=== PATIENT | female | born 1945 | race Two or more races ===

== ENCOUNTER 2017-06-04 22:25 | Emergency (ER) | payer MEDICARE ==
[2017-06-04] MEDS ORDERED: NS 0.9% 1000 ML* 1,000 ML IV ONE (22:52)
[2017-06-04 23:14] LABS: Hematocrit 36 % (35-47); Hemoglobin 11.6 g/dl (12.0-16.0); Mean Corpuscular HGB Conc 32 g/dl (31-36); Mean Corpuscular Hemoglobin 26 pg (27-31); Mean Corpuscular Volume 83 fL (80-97); Mean Platelet Volume 8 um3 (7.4-10.4); Red Cell Distribution Width 13 % (10.5-15); White Blood Count 4.6 10^3/ul (3.5-10.8)
[2017-06-04 23:27] LABS: BUN/Creatinine Ratio 11.8 (8-20); C Reactive Protein 8.25 mg/L (< 5.00); EGFR Non-African American 66.1 (>60); Globulin 3.2 g/dL (2-4); Potassium 3.4 mmol/L (3.5-5.0); Total Bilirubin 0.3 mg/dL (0.2-1.0); Total Protein 7.2 g/dL (6.4-8.9)
--- NOTE | 2017-06-04 23:51 | ED ---
Tara Spears Salem, scribed for Bogdan Nieves MD on 06/04/17 at 2306 . Abdominal Pain/Female - HPI Summary HPI Summary: Patient is a 72 y/o F who presents to the ED per EMS from home with abdominal pain since 2099. She denies nausea or fever, but reports diarrhea. Pt reports PMHx of abdominal cancer, but pt speaks minimal Romansh and is unable to expand. - History of Current Complaint Chief Complaint: EDAbdPain Stated Complaint: ABD PAIN Time Seen by Provider: 06/04/17 22:48 Hx Obtained From: Patient, EMS Onset/Duration: Gradual Onset, Lasting Hours, Still Present Timing: Constant Severity Initially: Moderate Severity Currently: Moderate Pain Intensity: 5 Pain Scale Used: 0-10 Numeric Location: Diffuse Radiates: No Aggravating Factor(s): Nothing Alleviating Factor(s): Nothing Associated Signs and Symptoms: Positive: Diarrhea. Negative: Nausea, Vomiting Allergies/Adverse Reactions: Allergies Allergy/AdvReac Type Severity Reaction Status Date / Time No Known Allergies Allergy Verified 02/18/14 14:02 PMH/Surg Hx/FS Hx/Imm Hx Musculoskeletal History: Denies: Hx Osteoporosis Infectious Disease History: No Infectious Disease History: Denies: Traveled Outside the [place] in Last 30 Days - Family History Known Family History: Positive: Unknown - Pt speaks minimal Romansh. - Social History Alcohol Use: None Hx Substance Use: No Substance Use Type: Reports: None Hx Tobacco Use: No Smoking Status (MU): Never Smoked Tobacco Review of Systems Negative: Fever Positive: Abdominal Pain, Diarrhea. Negative: Nausea All Other Systems Reviewed And Are Negative: Yes Physical Exam Triage Information Reviewed: Yes Vital Signs On Initial Exam: Initial Vitals Temp Pulse Resp BP Pulse Ox 98.4 F 80 18 132/80 99 06/04/17 22:34 06/04/17 22:34 06/04/17 22:34 06/04/17 22:34 06/04/17 22:34 Vital Signs Reviewed: Yes Appearance: Positive: No Pain Distress, Thin Skin: Positive: Warm Head/Face: Positive: Normal Head/Face Inspection Eyes: Positive: JACE ENT: Positive: Hearing grossly normal Neck: Positive: Supple Respiratory/Lung Sounds: Positive: Clear to Auscultation, Breath Sounds Present Cardiovascular: Positive: RRR Abdomen Description: Positive: Nontender, No Organomegaly, Soft Bowel Sounds: Positive: Present Musculoskeletal: Positive: Strength/ROM Intact Neurological: Positive: Sensory/Motor Intact - Beti Coma Scale Coma Scale Total: 15 Diagnostics - Vital Signs Vital Signs Temp Pulse Resp BP Pulse Ox 06/04/17 22:34 98.4 F 80 18 132/80 99 - Laboratory Lab Results: Lab Results 06/04/17 06/04/17 06/04/17 Range/Units 23:00 23:00 23:00 WBC 4.6 (3.5-10.8) 10^3/ul RBC 4.40 (4.0-5.4) 10^6/ul Hgb 11.6 L (12.0-16.0) g/dl Hct 36 (35-47) % MCV 83 (80-97) fL MCH 26 L (27-31) pg MCHC 32 (31-36) g/dl RDW 13 (10.5-15) % Plt Count 274 (150-450) 10^3/ul MPV 8 (7.4-10.4) um3 Neut % (Auto) 53.0 (38-83) % Lymph % (Auto) 30.0 (25-47) % Forrest % (Auto) 11.9 H (1-9) % Eos % (Auto) 4.2 (0-6) % Baso % (Auto) 0.9 (0-2) % Absolute Neuts (auto) 2.4 (1.5-7.7) 10^3/ul Absolute Lymphs (auto) 1.4 (1.0-4.8) 10^3/ul Absolute Monos (auto) 0.5 (0-0.8) 10^3/ul Absolute Eos (auto) 0.2 (0-0.6) 10^3/ul Absolute Basos (auto) 0 (0-0.2) 10^3/ul Absolute Nucleated RBC 0.01 10^3/ul Nucleated RBC % 0.1 Sodium 141 (133-145) mmol/L Potassium 3.4 L (3.5-5.0) mmol/L Chloride 109 (101-111) mmol/L Carbon Dioxide 25 (22-32) mmol/L Anion Gap 7 (2-11) mmol/L BUN 10 (6-24) mg/dL Creatinine 0.85 (0.51-0.95) mg/dL Est GFR ( Amer) 85.0 (>60) Est GFR (Non-Af Amer) 66.1 (>60) BUN/Creatinine Ratio 11.8 (8-20) Glucose 107 H (70-100) mg/dL Lactic Acid 0.8 (0.5-2.0) mmol/L Calcium 9.0 (8.6-10.3) mg/dL Magnesium 2.0 (1.9-2.7) mg/dL Total Bilirubin 0.30 (0.2-1.0) mg/dL AST 18 (13-39) U/L ALT 11 (7-52) U/L Alkaline Phosphatase 92 (34-104) U/L C-Reactive Protein 8.25 H (< 5.00) mg/L Total Protein 7.2 (6.4-8.9) g/dL Albumin 4.0 (3.2-5.2) g/dL Globulin 3.2 (2-4) g/dL Albumin/Globulin Ratio 1.3 (1-3) Lipase 32 (11.0-82.0) U/L Result Diagrams: 06/04/17 23:00 06/04/17 23:00 Lab Statement: Any lab studies that have been ordered have been reviewed, and results considered in the medical decision making process. Re-Evaluation - Re-Evaluation First Eval Re-Evaluation Time: 23:52 Comment: Discussed results. Second Eval Re-Evaluation Time: 00:14 Change: Improved Comment: Re-evaluated. Abdominal Pain Fem Course/Dx - Course Course Of Treatment: 72 y/o F presents per EMS from home with abdominal pain since 2099. She denies nausea or fever, but reports diarrhea. She received fluids in ED course. Pt will be discharged. - Diagnoses Provider Diagnoses: Abdominal pain Discharge - Discharge Plan Condition: Stable Disposition: HOME Patient Education Materials: Acute Diarrhea (ED), Acute Nausea and Vomiting (ED ) Print Language: PAKISTANI Referrals: Elza Loyola MD [Primary Care Provider] - Additional Instructions: Please follow up with your primary care provider. The documentation as recorded by the Tara wood Salem accurately reflects the service I personally performed and the decisions made by me, Bogdan Nieves MD.
[2017-06-05 01:25] VITALS: BP 97/48
== END 2017-06-05 00:25 | disposition home or self-care (01) ==
LOC: ED 22:25
DX: R10.9 Unspecified abdominal pain (principal); R19.7 Diarrhea, unspecified
CPT/HCPCS: 36415; 80053; 83605; 83690; 83735; 85025; 86140; 99282

== ENCOUNTER 2017-09-09 20:21 | Emergency (ER) | payer MEDICARE ==
[2017-09-09] MEDS ORDERED: Famotidine IV* 10 MG/ML 2 ML (20 mg) IVPB ONE (21:26)
[2017-09-09] MEDS ORDERED: NS 0.9% 1000 ML* 1,000 ML IV ONE (21:26)
[2017-09-09] MEDS ORDERED: Al Hydrox/Mg Hydrox/Simet LIQ* 30 ML UDC PO ONE (21:26)
[2017-09-09] MEDS ORDERED: Lidocaine 2% VISCOUS* 15 ML UDC PO ONE (21:26)
[2017-09-09 21:46] LABS: Hematocrit 37 % (35-47); Hemoglobin 11.9 g/dl (12.0-16.0); Mean Corpuscular HGB Conc 32 g/dl (31-36); Mean Corpuscular Hemoglobin 26 pg (27-31); Mean Corpuscular Volume 80 fL (80-97); Mean Platelet Volume 8 um3 (7.4-10.4); Red Blood Count 4.64 10^6/ul (4.0-5.4); Red Cell Distribution Width 14 % (10.5-15); White Blood Count 5.9 10^3/ul (3.5-10.8)
[2017-09-09 22:01] LABS: Albumin 4.1 g/dL (3.2-5.2); BUN/Creatinine Ratio 14.3 (8-20); Calcium 9.2 mg/dL (8.6-10.3); EGFR African American 86.2 (>60); Globulin 3.4 g/dL (2-4); Potassium 3.6 mmol/L (3.5-5.0); Total Bilirubin 0.4 mg/dL (0.2-1.0); Total Protein 7.5 g/dL (6.4-8.9)
--- NOTE | 2017-09-09 22:01 | RAD ---
Indication: Rule out free air. Abdominal pain and nausea and vomiting. Single frontal view of the chest performed at 2137 hours was reviewed. Comparison is made with previous exam dated September 27, 2010. No mediastinal shift is noted. Heart is of normal size and configuration. Lung rios appear clear. No free air is identified under the diaphragms. IMPRESSION: NO ACTIVE CARDIOPULMONARY DISEASE IS NOTED.
[2017-09-09 22:58] LABS: Urine Bacteria Absent (Absent); Urine Bilirubin Negative (Negative); Urine Glucose Negative (Negative); Urine Nitrite Negative (Negative)
[2017-09-09] MEDS ORDERED: Iohexol 300* (CONTRAST) 10 ML SDV IV ONE (23:37)
[2017-09-10] MEDS ORDERED: Cephalexin CAP* 500 MG PO ONE (01:51)
--- NOTE | 2017-09-10 02:23 | ED ---
Bonilla Spears Rebecca, scribed for Tha Rodriguez MD on 09/09/17 at 2144 . Abdominal Pain/Female - HPI Summary HPI Summary: Pt is a 72 y/o F BIBA with a PMHx gastric ulcers and a questionable Hx of NM who presents to ED c/o abdominal pain for multiple weeks. Pain is in the upper abdominal region and is currently mild, ranked 3/10. Sx aggravated and alleviated by nothing. Additionally c/o sore throat, mild chest pain and notes an episode of soft stool earlier today. Denies any fever, cough, N/V and hematochezia. Current pain is prior to similar episodes. She is current in NAD. - History of Current Complaint Chief Complaint: EDAbdPain Stated Complaint: GENERAL ILLNESS Hx Obtained From: Patient Onset/Duration: Lasting Weeks - Multiple weeks, Still Present Severity Currently: Mild Pain Intensity: 3 Pain Scale Used: 0-10 Numeric Location: Epigastric Aggravating Factor(s): Nothing Alleviating Factor(s): Nothing Associated Signs and Symptoms: Positive: Chest Pain - mild, Other: - Soft stool. Negative: Nausea, Vomiting Allergies/Adverse Reactions: Allergies Allergy/AdvReac Type Severity Reaction Status Date / Time No Known Allergies Allergy Verified 02/18/14 14:02 PMH/Surg Hx/FS Hx/Imm Hx GI History: Reports: Hx Ulcer Musculoskeletal History: Denies: Hx Osteoporosis Infectious Disease History: No Infectious Disease History: Denies: Traveled Outside the [place] in Last 30 Days - Family History Known Family History: Positive: Unknown - Pt speaks minimal Korean. - Social History Alcohol Use: None Hx Substance Use: No Substance Use Type: Reports: None Hx Tobacco Use: No Smoking Status (MU): Never Smoked Tobacco Review of Systems Negative: Fever Positive: Sore Throat Positive: Chest Pain - mild Negative: Cough Positive: Abdominal Pain, Other - Soft stool; NEGATIVE: Hematochezia. Negative : Vomiting, Diarrhea All Other Systems Reviewed And Are Negative: Yes Physical Exam Triage Information Reviewed: Yes Vital Signs On Initial Exam: Initial Vitals Temp Pulse Resp BP Pulse Ox 99 F 88 18 136/58 97 09/09/17 20:33 09/09/17 20:33 09/09/17 20:33 09/09/17 20:33 09/09/17 20:33 Vital Signs Reviewed: Yes Appearance: Positive: Well-Appearing, No Pain Distress Skin: Positive: Warm, Skin Color Reflects Adequate Perfusion Head/Face: Positive: Normal Head/Face Inspection Eyes: Positive: Normal ENT: Positive: Normal ENT inspection Neck: Positive: Supple Respiratory/Lung Sounds: Positive: Clear to Auscultation, Breath Sounds Present Cardiovascular: Positive: Normal, RRR, Pulses are Symmetrical in both Upper and Lower Extremities Abdomen Description: Positive: Other: - Minimal tenderness without rebound or guarding in the epigastrum. Negative: CVA Tenderness (R), CVA Tenderness (L), Guarding Bowel Sounds: Positive: Present Musculoskeletal: Positive: Normal, Strength/ROM Intact, Other - Moves all 4 extremities spontaneosuly; Negative calf tenderness and erythema. Negative: Edema Left, Edema Right Neurological: Positive: Normal, Sensory/Motor Intact, Alert, Oriented to Person Place, Time Psychiatric: Positive: Normal - Pleasant Diagnostics - Vital Signs Vital Signs Temp Pulse Resp BP Pulse Ox 09/09/17 20:33 99 F 88 18 136/58 97 - Laboratory Lab Results: Lab Results 09/09/17 09/09/17 09/09/17 Range/Units 21:36 21:36 21:36 WBC 5.9 (3.5-10.8) 10^3/ul RBC 4.64 (4.0-5.4) 10^6/ul Hgb 11.9 L (12.0-16.0) g/dl Hct 37 (35-47) % MCV 80 (80-97) fL MCH 26 L (27-31) pg MCHC 32 (31-36) g/dl RDW 14 (10.5-15) % Plt Count 304 (150-450) 10^3/ul MPV 8 (7.4-10.4) um3 Neut % (Auto) 64.6 (38-83) % Lymph % (Auto) 23.7 L (25-47) % Garrard % (Auto) 10.5 H (1-9) % Eos % (Auto) 0.4 (0-6) % Baso % (Auto) 0.8 (0-2) % Absolute Neuts (auto) 3.8 (1.5-7.7) 10^3/ul Absolute Lymphs (auto) 1.4 (1.0-4.8) 10^3/ul Absolute Monos (auto) 0.6 (0-0.8) 10^3/ul Absolute Eos (auto) 0 (0-0.6) 10^3/ul Absolute Basos (auto) 0 (0-0.2) 10^3/ul Absolute Nucleated RBC 0.01 10^3/ul Nucleated RBC % 0.1 INR (Anticoag Therapy) 1.03 (0.89-1.11) Sodium 139 (133-145) mmol/L Potassium 3.6 (3.5-5.0) mmol/L Chloride 105 (101-111) mmol/L Carbon Dioxide 26 (22-32) mmol/L Anion Gap 8 (2-11) mmol/L BUN 12 (6-24) mg/dL Creatinine 0.84 (0.51-0.95) mg/dL Est GFR ( Amer) 86.2 (>60) Est GFR (Non-Af Amer) 67.0 (>60) BUN/Creatinine Ratio 14.3 (8-20) Glucose 98 (70-100) mg/dL Calcium 9.2 (8.6-10.3) mg/dL Magnesium 2.0 (1.9-2.7) mg/dL Total Bilirubin 0.40 (0.2-1.0) mg/dL AST 21 (13-39) U/L ALT 10 (7-52) U/L Alkaline Phosphatase 97 (34-104) U/L Troponin I 0.00 (<0.04) ng/mL Total Protein 7.5 (6.4-8.9) g/dL Albumin 4.1 (3.2-5.2) g/dL Globulin 3.4 (2-4) g/dL Albumin/Globulin Ratio 1.2 (1-3) Amylase 38 (29-103) U/L Lipase 28 (11.0-82.0) U/L Urine Color Urine Appearance Urine pH (5-9) Ur Specific [place] (1.010-1.030) Urine Protein (Negative) Urine Ketones (Negative) Urine Blood (Negative) Urine Nitrate (Negative) Urine Bilirubin (Negative) Urine Urobilinogen (Negative) Ur Leukocyte Esterase (Negative) Urine WBC (Auto) (Absent) Urine RBC (Auto) (Absent) Ur Squamous Epith Cells (Absent) Urine Bacteria (Absent) Urine Glucose (Negative) 09/09/17 Range/Units 22:45 WBC (3.5-10.8) 10^3/ul RBC (4.0-5.4) 10^6/ul Hgb (12.0-16.0) g/dl Hct (35-47) % MCV (80-97) fL MCH (27-31) pg MCHC (31-36) g/dl RDW (10.5-15) % Plt Count (150-450) 10^3/ul MPV (7.4-10.4) um3 Neut % (Auto) (38-83) % Lymph % (Auto) (25-47) % Garrard % (Auto) (1-9) % Eos % (Auto) (0-6) % Baso % (Auto) (0-2) % Absolute Neuts (auto) (1.5-7.7) 10^3/ul Absolute Lymphs (auto) (1.0-4.8) 10^3/ul Absolute Monos (auto) (0-0.8) 10^3/ul Absolute Eos (auto) (0-0.6) 10^3/ul Absolute Basos (auto) (0-0.2) 10^3/ul Absolute Nucleated RBC 10^3/ul Nucleated RBC % INR (Anticoag Therapy) (0.89-1.11) Sodium (133-145) mmol/L Potassium (3.5-5.0) mmol/L Chloride (101-111) mmol/L Carbon Dioxide (22-32) mmol/L Anion Gap (2-11) mmol/L BUN (6-24) mg/dL Creatinine (0.51-0.95) mg/dL Est GFR ( Amer) (>60) Est GFR (Non-Af Amer) (>60) BUN/Creatinine Ratio (8-20) Glucose (70-100) mg/dL Calcium (8.6-10.3) mg/dL Magnesium (1.9-2.7) mg/dL Total Bilirubin (0.2-1.0) mg/dL AST (13-39) U/L ALT (7-52) U/L Alkaline Phosphatase (34-104) U/L Troponin I (<0.04) ng/mL Total Protein (6.4-8.9) g/dL Albumin (3.2-5.2) g/dL Globulin (2-4) g/dL Albumin/Globulin Ratio (1-3) Amylase (29-103) U/L Lipase (11.0-82.0) U/L Urine Color Yellow Urine Appearance Cloudy Urine pH 6.0 (5-9) Ur Specific [place] 1.018 (1.010-1.030) Urine Protein Negative (Negative) Urine Ketones Trace H (Negative) Urine Blood 1+ H (Negative) Urine Nitrate Negative (Negative) Urine Bilirubin Negative (Negative) Urine Urobilinogen Negative (Negative) Ur Leukocyte Esterase 2+ H (Negative) Urine WBC (Auto) 1+(6-10/hpf) H (Absent) Urine RBC (Auto) 3+(>10/hpf) H (Absent) Ur Squamous Epith Cells Present H (Absent) Urine Bacteria Absent (Absent) Urine Glucose Negative (Negative) Result Diagrams: 09/09/17 21:36 09/09/17 21:36 Lab Statement: Any lab studies that have been ordered have been reviewed, and results considered in the medical decision making process. - Radiology CXR Xray Interpretation: No Acute Changes - NO ACTIVE CARDIOPULMONARY DISEASE IS NOTED. ED physician reviewed radiology report and agrees. 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 No other localizing findings for acute pathology. ED physician reviewed this radiology report and agrees. CT Interpretation Completed By: Radiologist Re-Evaluation - Re-Evaluation First Eval Re-Evaluation Time: 00:45 Comment: Pt is doing well. Answered any questions the pt had. Abdominal Pain Fem Course/Dx - Course Course Of Treatment: pt feels better after tx here in ed, instructed to fu at clinic with Dr. Walker who I spoke with on the phone today, for scheduled resection of appendiceal mucocele. Pt and family agree and understand discharge instructions. - Diagnoses Provider Diagnoses: Appendicular mucocele, UTI (urinary tract infection) - Provider Notifications Discussed Care Of Patient With: Bogdan Walker Time Discussed With Above Provider: 01:30 Instructed by Provider To: Other - fu as outpatient Discharge - Discharge Plan Condition: Improved Disposition: HOME Prescriptions: Cephalexin CAP* [Keflex CAP*] 500 mg PO BID #10 cap Patient Education Materials: Acute Abdominal Pain (ED) Print Language: J[place]ICAN Referrals: Elza Loyola MD [Primary Care Provider] - Bogdan Walker MD [Medical Doctor] - Additional Instructions: POR FAVOR VALERIE MARKEL SUN CON EL DR. WALKER PRIMERA COSA POR LA MAANA POR FAVOR REGRESE A LA KEARA DE EMERGENCIAS SI USTED TIENE ALGUNA SENSACIN O S NTOMAS RELATIVOS The documentation as recorded by the Bonilla wood Rebecca accurately reflects the service I personally performed and the decisions made by me, Tha Rodriguez MD.
[2017-09-10 02:38] VITALS: BP 117/81
--- NOTE | 2017-09-10 08:09 | RAD ---
INDICATION: Abdominal pain. History of gastric carcinoma. Evaluate for aneurysm. Diarrhea. COMPARISON: CT June 26, 2006 TECHNIQUE: Axial source images were obtained from the hemidiaphragms to the symphysis pubis following administration of oral and intravenous contrast. 60 mL Omnipaque 300 was utilized. Coronal and sagittal reconstructed images were acquired. Lung bases: The lung bases are clear. Liver: The liver is normal in size. There are no new masses. There is a subcentimeter right hepatic hypodensity which is likely a incidental cyst or hemangioma There is no ductal dilatation. Gallbladder: There are no calcified gallstones. There is no evidence of wall thickening or pericholecystic fluid. Spleen: The spleen is normal in size. There are no masses. Pancreas: There is no focal pancreatic mass or ductal dilatation. Adrenal glands: There is no evidence of adrenal mass. Kidneys: The kidneys are normal in size and position. There are prompt nephrograms and there is prompt excretion bilaterally. There are no renal parenchymal masses. There is no evidence of nephrolithiasis. Adenopathy: There is no evidence of adenopathy by size criteria. Fluid collections: There are no free or localized fluid collections. Vessels:There are no significant atherosclerotic changes involving the aorta. There is no focal aneurysm. The iliac vessels are normal in caliber. The IVC appears normal. GI tract: There are no acute CT bowel findings. There is no obstruction. The stomach and small bowel appear normal. The ileocecal valve is normal. The appendix is fluid-filled and dilated measuring 2.7 cm in transverse dimension. There is no abnormal enhancement. There is no periappendiceal inflammatory change. The cecum, ascending colon, transverse colon, and descending colon are normal. There are moderate diverticula of the sigmoid colon. There is no obstruction. Pelvic organs: Hysterectomy. No adnexal mass. Bladder: There are no bladder masses. Abdominal and pelvic soft tissues: There is a small fat-containing periumbilical hernia.. Osseous structures: There are no acute osseous findings. Other: None IMPRESSION: 1. NO EVIDENCE OF ABDOMINAL AORTIC ANEURYSM. 2. DILATED FLUID-FILLED APPENDIX WITHOUT ADJACENT INFLAMMATORY CHANGE. CONSIDER MUCOCELE/BENIGN OR MALIGNANT APPENDICEAL NEOPLASM. 3. NO CT FINDINGS TO ACCOUNT FOR ACUTE SYMPTOMATOLOGY. SUGGEST SURGICAL REFERRAL INDICATED.
== END 2017-09-10 02:38 | disposition home or self-care (01) ==
LOC: ED 20:21
DX: K38.8 Other specified diseases of appendix (principal); N39.0 Urinary tract infection, site not specified; R07.9 Chest pain, unspecified; R10.9 Unspecified abdominal pain; J02.9 Acute pharyngitis, unspecified
CPT/HCPCS: 36415; 71010; 74177; 80053; 81003; 81015; 82150; 83690; 83735; 84484; 85025; 85610; 87086; 96365; 99283; A9270-GY; Q9967

== ENCOUNTER 2017-11-30 17:42 | Emergency (ER) | payer MEDICARE ==
[2017-11-30] MEDS ORDERED: Pantoprazole IV* 40 MG IV ONE (18:19)
[2017-11-30 18:49] LABS: ABS Basophils 0 10^3/ul (0-0.2); ABS Eosinophils 0 10^3/ul (0-0.6); ABS Lymphocytes 1.2 10^3/ul (1.0-4.8); ABS Monocytes 0.6 10^3/ul (0-0.8); ABS Neutrophils 4.2 10^3/ul (1.5-7.7); ABS Nucleated RBC 0 10^3/ul; Eosinophil % 0.5 % (0-6); Hematocrit 38 % (35-47); Hemoglobin 12.2 g/dl (12.0-16.0); Lymphocyte % 19.4 % (25-47); Mean Corpuscular HGB Conc 32 g/dl (31-36); Mean Corpuscular Hemoglobin 26 pg (27-31); Mean Corpuscular Volume 79 fL (80-97); Mean Platelet Volume 8 um3 (7.4-10.4); Nucleated Red Blood Cells % 0.1; Platelet Count 336 10^3/ul (150-450); Red Blood Count 4.77 10^6/ul (4.0-5.4); Red Cell Distribution Width 13 % (10.5-15); White Blood Count 6.1 10^3/ul (3.5-10.8)
[2017-11-30 18:59] LABS: Urine Appearance Clear; Urine Blood 2+ (Negative); Urine Color Yellow; Urine Ketones Negative (Negative); Urine Protein Negative (Negative); Urine Urobilinogen Negative (Negative)
[2017-11-30 19:06] LABS: EGFR Non-African American 71.9 (>60)
[2017-11-30] MEDS ORDERED: Iohexol 300* (CONTRAST) 10 ML SDV IV ONE (21:34)
--- NOTE | 2017-11-30 22:14 | ED ---
Gisela Spears Julia, scribed for Gage Caruso MD on 11/30/17 at 1951 . 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 Patient reports left chest pain, bloody stool and urine, fever , diarrhea, weakness, and eye pain.The patient rates the pain 8/10 in severity - History of Current Complaint Chief Complaint: EDAbdPain Stated Complaint: ABD PAIN Time Seen by Provider: 11/30/17 18:00 Hx Obtained From: Patient, Family/Magento Developer Onset/Duration: Lasting Hours Timing: Intermittent Episode Lasting Pain Intensity: 8 Pain Scale Used: 0-10 Numeric Associated Signs and Symptoms: Positive: Other: Allergies/Adverse Reactions: Allergies Allergy/AdvReac Type Severity Reaction Status Date / Time No Known Allergies Allergy Verified 02/18/14 14:02 PMH/Surg Hx/FS Hx/Imm Hx Endocrine/Hematology History: Denies: Hx Diabetes Cardiovascular History: Denies: Hx Hypertension GI History: Reports: Hx Ulcer History: Denies: Hx Renal Disease Musculoskeletal History: Denies: Hx Osteoporosis - Cancer History Cancer Type, 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 - Surgical History Surgery Procedure, Year, and Place: STOMACH TO REMOVE CA (?) PER PT, DONE IN [place] Infectious Disease History: No Infectious Disease History: Denies: Traveled Outside the US in Last 30 Days - Family History Known Family History: Positive: Unknown - Pt speaks minimal Telugu. - Social History Alcohol Use: None Hx Substance Use: No Substance Use Type: Reports: None Hx Tobacco Use: No Smoking Status (MU): Never Smoked Tobacco Review of Systems Positive: Fever, Other - weakness Eyes: Other - pain Positive: Chest Pain Positive: Abdominal Pain, Diarrhea, Other - bloody stool Positive: hematuria All Other Systems Reviewed And Are Negative: Yes Physical Exam - Summary Physical Exam Summary: Appearance: The patient is well-nourished in no acute distress and in no acute pain. Skin: The skin is warm and dry and skin color reflects adequate perfusion. HEENT: The head is normocephalic and atraumatic. The pupils are equal and reactive. The conjunctivae are clear and without drainage. Nares are patent and without drainage. Mouth reveals moist mucous membranes and the throat is without erythema and exudate. The external ears are intact. The ear canals are patent and without drainage. The tympanic membranes are intact. Neck: the neck is supple with full range of motion and non-tender. There are no carotid bruits. There is no neck vein distension. Respiratory: Chest is non-tender. Lungs are clear to auscultation and breath sounds are symmetrical and equal. Cardiovascular: Heart is regular rate and rhythm. There is no murmur or rub auscultated. There is no peripheral edema and pulses are symmetrical and equal. Abdomen: The abdomen is soft with diffuse abdominal tenderness. There are normal bowel sounds heard in all four quadrants and there is no organomegaly palpated. Musculoskeletal: There is no back tenderness noted. Extremities are non-tender with full range of motion. There is good capillary refill. There is no peripheral edema or calf tenderness elicited. Neurological: Patient is alert and oriented to person, place and time. The patient has symmetrical motor strength in all four extremities. Cranial nerves are grossly intact. Deep tendon reflexes are symmetrical and equal in all four extremities. Psychiatric: The patient has an appropriate affect and does not exhibit any anxiety or depression. Triage Information Reviewed: Yes Vital Signs On Initial Exam: Initial Vitals BP 121/59 11/30/17 17:58 Vital Signs Reviewed: Yes - [place] Coma Scale Coma Scale Total: 15 Diagnostics - Vital Signs Vital Signs Temp Pulse Resp BP Pulse Ox 11/30/17 19:00 76 18 99 11/30/17 18:00 97.7 F 84 20 121/59 100 11/30/17 17:59 85 17 100 11/30/17 17:58 121/59 - Laboratory Lab Results: Lab Results 11/30/17 11/30/17 11/30/17 Range/Units 18:35 18:35 18:35 WBC 6.1 (3.5-10.8) 10^3/ul RBC 4.77 (4.0-5.4) 10^6/ul Hgb 12.2 (12.0-16.0) g/dl Hct 38 (35-47) % MCV 79 L (80-97) fL MCH 26 L (27-31) pg MCHC 32 (31-36) g/dl RDW 13 (10.5-15) % Plt Count 336 (150-450) 10^3/ul MPV 8 (7.4-10.4) um3 Neut % (Auto) 69.7 (38-83) % Lymph % (Auto) 19.4 L (25-47) % [place] % (Auto) 9.9 H (1-9) % Eos % (Auto) 0.5 (0-6) % Baso % (Auto) 0.5 (0-2) % Absolute Neuts (auto) 4.2 (1.5-7.7) 10^3/ul Absolute Lymphs (auto) 1.2 (1.0-4.8) 10^3/ul Absolute Monos (auto) 0.6 (0-0.8) 10^3/ul Absolute Eos (auto) 0 (0-0.6) 10^3/ul Absolute Basos (auto) 0 (0-0.2) 10^3/ul Absolute Nucleated RBC 0 10^3/ul Nucleated RBC % 0.1 Sodium 137 (133-145) mmol/L Potassium 3.5 (3.5-5.0) mmol/L Chloride 103 (101-111) mmol/L Carbon Dioxide 29 (22-32) mmol/L Anion Gap 5 (2-11) mmol/L BUN 12 (6-24) mg/dL Creatinine 0.79 (0.51-0.95) mg/dL Est GFR ( Amer) 92.5 (>60) Est GFR (Non-Af Amer) 71.9 (>60) BUN/Creatinine Ratio 15.2 (8-20) Glucose 103 H (70-100) mg/dL Lactic Acid 0.9 (0.5-2.0) mmol/L Calcium 9.2 (8.6-10.3) mg/dL Total Bilirubin 0.40 (0.2-1.0) mg/dL AST 18 (13-39) U/L ALT 9 (7-52) U/L Alkaline Phosphatase 103 (34-104) U/L C-Reactive Protein 8.53 H (< 5.00) mg/L Total Protein 7.5 (6.4-8.9) g/dL Albumin 4.1 (3.2-5.2) g/dL Globulin 3.4 (2-4) g/dL Albumin/Globulin Ratio 1.2 (1-3) Lipase 31 (11.0-82.0) U/L Urine Color Urine Appearance Urine pH (5-9) Ur Specific [place] (1.010-1.030) Urine Protein (Negative) Urine Ketones (Negative) Urine Blood (Negative) Urine Nitrate (Negative) Urine Bilirubin (Negative) Urine Urobilinogen (Negative) Ur Leukocyte Esterase (Negative) Urine WBC (Auto) (Absent) Urine RBC (Auto) (Absent) Ur Squamous Epith Cells (Absent) Urine Bacteria (Absent) Urine Glucose (Negative) 11/30/17 Range/Units 18:35 WBC (3.5-10.8) 10^3/ul RBC (4.0-5.4) 10^6/ul Hgb (12.0-16.0) g/dl Hct (35-47) % MCV (80-97) fL MCH (27-31) pg MCHC (31-36) g/dl RDW (10.5-15) % Plt Count (150-450) 10^3/ul MPV (7.4-10.4) um3 Neut % (Auto) (38-83) % Lymph % (Auto) (25-47) % [place] % (Auto) (1-9) % Eos % (Auto) (0-6) % Baso % (Auto) (0-2) % Absolute Neuts (auto) (1.5-7.7) 10^3/ul Absolute Lymphs (auto) (1.0-4.8) 10^3/ul Absolute Monos (auto) (0-0.8) 10^3/ul Absolute Eos (auto) (0-0.6) 10^3/ul Absolute Basos (auto) (0-0.2) 10^3/ul Absolute Nucleated RBC 10^3/ul Nucleated RBC % Sodium (133-145) mmol/L Potassium (3.5-5.0) mmol/L Chloride (101-111) mmol/L Carbon Dioxide (22-32) mmol/L Anion Gap (2-11) mmol/L BUN (6-24) mg/dL Creatinine (0.51-0.95) mg/dL Est GFR ( Amer) (>60) Est GFR (Non-Af Amer) (>60) BUN/Creatinine Ratio (8-20) Glucose (70-100) mg/dL Lactic Acid (0.5-2.0) mmol/L Calcium (8.6-10.3) mg/dL Total Bilirubin (0.2-1.0) mg/dL AST (13-39) U/L ALT (7-52) U/L Alkaline Phosphatase (34-104) U/L C-Reactive Protein (< 5.00) mg/L Total Protein (6.4-8.9) g/dL Albumin (3.2-5.2) g/dL Globulin (2-4) g/dL Albumin/Globulin Ratio (1-3) Lipase (11.0-82.0) U/L Urine Color Yellow Urine Appearance Clear Urine pH 6.0 (5-9) Ur Specific [place] 1.010 (1.010-1.030) Urine Protein Negative (Negative) Urine Ketones Negative (Negative) Urine Blood 2+ H (Negative) Urine Nitrate Negative (Negative) Urine Bilirubin Negative (Negative) Urine Urobilinogen Negative (Negative) Ur Leukocyte Esterase Negative (Negative) Urine WBC (Auto) Absent (Absent) Urine RBC (Auto) Trace(0-2/hpf) (Absent) Ur Squamous Epith Cells Present H (Absent) Urine Bacteria Absent (Absent) Urine Glucose Negative (Negative) Result Diagrams: 11/30/17 18:35 11/30/17 18:35 Lab Statement: Any lab studies that have been ordered have been reviewed, and results considered in the medical decision making process. - EKG 18:02 Cardiac Rate: NL EKG Rhythm: Sinus Rhythm - at 77 BPM Abdominal Pain Fem Course/Dx - Diagnoses Provider Diagnoses: Abdominal pain Discharge - Discharge Plan Disposition: OTHER Referrals: Elza Loyola MD [Primary Care Provider] - The documentation as recorded by the Gisela wood Julia accurately reflects the service I personally performed and the decisions made by , Gage Caruso MD.
[2017-12-01 01:20] VITALS: BP 134/93
--- NOTE | 2017-12-01 03:50 | ED ---
Federico Spears Abhishek, scribed for Gerson Morel MD on 12/01/17 at 0034 . Progress - Progress Note Progress Note: The pt was signed out by Dr. Caruso, pending disposition and awaiting CT A/P. - Results/Orders Results/Orders: CT A/P reveals there is no bowel obstruction, free air, or free fluid. Mild sigmoid diverticulosis. No diverticulitis or colitis. the dilated appendix seen on September 10 is again noted and unchanged. As noted previously, this could represent a mucocele, in which case the appendiceal neoplasm should be considered. Normal kidneys urinary tract and urinary bladder. Normal liver except for small right lobe cyst. Normal spleen. ED Physician has reviewed this radiology report and agrees. Course/Dx - Course Course Of Treatment: DISCUSSED RESULTS WITH PATIENT AND HER DAUGHTER. PATIENT NOW PAIN FREE IN THE ED. F/U PMD; RETURN IF WORSE. - Diagnoses Provider Diagnoses: Abdominal pain The documentation as recorded by the Federico wood Abhishek accurately reflects the service I personally performed and the decisions made by , Gerson Morel MD.
--- NOTE | 2017-12-01 08:06 | RAD ---
CLINICAL HISTORY: Diffuse abdominal pain. The patient reports stomach surgery to "remove cancer" in [place]. COMPARISON: Most recent comparison CT examination is dated September 10, 2017 TECHNIQUE: Contrast enhanced CT examination of the abdomen and pelvis from the lung bases through the initial tuberosities. The patient received 64 mL Omnipaque 300 intravenously prior to imaging.The patient received oral contrast as well prior to imaging. FINDINGS: VISUALIZED LUNG BASES: The visualized lung bases are grossly clear. There is no pleural effusion. ABDOMEN AND PELVIS: The right lobe of the liver there is a 6 mm hypoattenuating focus unchanged in the prior CT examination. The spleen, pancreas and adrenal glands are grossly normal in appearance. The gallbladder is normal. The kidneys are normal in appearance without focal mass, calcification or signs of hydronephrosis. The oral contrast has progressed as far as the transverse colon. The small and large bowel are not distended. Similar to the prior CT examination the appendix is enlarged measuring 2.8 x 2.8 cm in the axial plane (image 49) and 6.4 cm in the cephalocaudal projection (image 48 on the coronal images). There is low-density material filling the appendix. More distally there are diverticula at the rectosigmoid colon but there is no focal inflammatory change consistent with diverticulitis. There is no gross retroperitoneal or mesenteric lymphadenopathy. The uterus appears to be surgically absent. The abdominal aorta and iliac arteries are normal in course and diameter. Degenerative changes include multilevel loss of intervertebral disc height involving the lower thoracic and lumbar spine and multilevel vacuum disc phenomenon. At the L1 vertebral body (sagittal image 59 and axial image 23) there is a subcentimeter focal hypoattenuating lucency in the right vertebral body. This is unchanged from the most recent September 10, 2017 CT examination and appears to likely been present on the June 26, 2006 CT examination as well. IMPRESSION: 1. Grossly dilated appendix with low attenuating material filling the lumen consistent with either a mucocele or potentially an appendiceal neoplasm. 2. Diverticulosis without acute inflammatory change. 3. Additional chronic and degenerative changes described in the body of the report.
== END 2017-12-01 01:23 | disposition home or self-care (01) ==
LOC: ED 17:42
DX: R10.9 Unspecified abdominal pain (principal)
CPT/HCPCS: 36415; 74177; 80053; 81003; 81015; 83605; 83690; 85025; 86140; 93005; 96374; 99283; Q9967

== ENCOUNTER 2018-01-14 21:58 | Emergency (ER) | payer MEDICARE ==
[2018-01-14] MEDS ORDERED: Sucralfate TAB* 1 GM PO ONE (22:18)
[2018-01-14] MEDS ORDERED: Al Hydrox/Mg Hydrox/Simet LIQ* 30 ML UDC PO ONE (22:18)
[2018-01-14] MEDS ORDERED: Pantoprazole TAB (NF) 40 MG TAB PO ONE (22:18)
[2018-01-14] MEDS ORDERED: Famotidine TAB* 20 MG PO ONE (22:18)
[2018-01-14] MEDS ORDERED: Omeprazole CAP* 20 MG PO ONE (23:00)
[2018-01-15 00:05] VITALS: BP 109/53
--- NOTE | 2018-01-15 04:06 | ED ---
Tuan Spears Jennifer, scribed for Leo Hines MD on 01/14/18 at 2218 . Abdominal Pain/Female - HPI Summary HPI Summary: The patient is a 72 year old female who presents with an ulcer on her stomach since last week. She reports that when it rubs, it makes her vomit blood. She denies black or bloody stool. She has not had treatment for it in a long time. She denies taking any medication at this time. The patient additionally complains of chest pain, and diarrhea and fever for three days. LEVEL 5 CAVEAT: HPI limited due to patients limited Colombian. The patient only speaks Lithuanian. - History of Current Complaint Stated Complaint: GENERAL ILLNESS Time Seen by Provider: 01/14/18 22:06 Hx Obtained From: Crusher Machine Operator - Nurse Onset/Duration: Lasting Weeks - one week, Still Present Timing: Constant Severity Initially: Mild Severity Currently: Mild Radiates: No Aggravating Factor(s): Nothing Alleviating Factor(s): Nothing Associated Signs and Symptoms: Positive: Other: - Ulcer on stomach, hematemesis. NEGATIVE: black or blood stool. 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 - Surgical History Surgery Procedure, Year, and Place: STOMACH TO REMOVE CA (?) PER PT, DONE IN [place] - Family History Known Family History: Positive: Unknown - Pt speaks minimal Colombian. - Social History Alcohol Use: None Hx Substance Use: No Substance Use Type: Reports: None Hx Tobacco Use: No Smoking Status (MU): Never Smoked Tobacco Review of Systems Positive: Fever Positive: Chest Pain Positive: Diarrhea, Other - Hematemesis, Ulcer on stomach All Other Systems Reviewed And Are Negative: Yes - Comments Additional Review of Systems Comments: LEVEL 5 CAVEAT: ROS limited due to patients limited Colombian. The patient only speaks Lithuanian. Physical Exam - Summary Physical Exam Summary: Appearance: Well appearing, no pain distress Skin: warm, dry, reflects adequate perfusion Head/face: normal Eyes: Cloudiness in eyes, EOMI, JACE ENT: normal Neck: supple, non-tender Respiratory: CTA, breath sounds present Cardiovascular: RRR, pulses symmetrical Abdomen: non-tender, soft Bowel: present Musculoskeletal: normal, strength/ROM intact Neuro: normal, sensory motor intact, A&Ox3 Triage Information Reviewed: Yes Vital Signs On Initial Exam: Initial Vitals Temp Pulse Resp BP Pulse Ox 37.4 C 82 15 115/51 97 01/14/18 22:30 01/14/18 22:30 01/14/18 22:30 01/14/18 22:30 01/14/18 22:30 Vital Signs Reviewed: Yes Diagnostics - Vital Signs Vital Signs Temp Pulse Resp BP Pulse Ox 01/15/18 00:03 36.6 C 80 16 109/53 98 01/14/18 22:30 37.4 C 82 15 115/51 97 - Laboratory Lab Statement: Any lab studies that have been ordered have been reviewed, and results considered in the medical decision making process. - EKG 22:17 Cardiac Rate: NL EKG Rhythm: Sinus Rhythm - [address] Segment: Normal EKG Interpretation: Normal axis intervals Abdominal Pain Fem Course/Dx - Course Course Of Treatment: Lithuanian speaking, hx obtained thru translator and interpreter. PUD threw up blood a week ago. None now. No melena. Hx of same intermittently. Will need re-scope. GI meds given with relief. EKG neg. F/U GI, PMD. Rx for GI meds. - Diagnoses Provider Diagnoses: Peptic ulcer disease Discharge - Discharge Plan Condition: Good Disposition: HOME Prescriptions: Famotidine TAB* [Pepcid 20 MG TAB*] 20 mg PO BID #10 tab Pantoprazole TAB (NF) [Protonix TAB (NF)] 40 mg PO DAILY #30 tab Sucralfate TAB* [Carafate*] 1 gm PO ACHS #60 tab Patient Education Materials: Peptic Ulcer (ED) Print Language: SCOTTISH Referrals: Elza Loyola MD [Primary Care Provider] - Additional Instructions: Llama al Dr. Loyola por la maana para nigel gloria. Evite el alcohol, aspirina / ibuprofeno, comidas picantes. Regrese con heces oscuras, dolor incontrolable, v mitos de susie, empeorar u otras preocupaciones. The documentation as recorded by the Tuan wood Jennifer accurately reflects the service I personally performed and the decisions made by , Leo Hines MD.
== END 2018-01-15 00:05 | disposition home or self-care (01) ==
LOC: ED 21:58
DX: K27.4 Chronic or unspecified peptic ulcer, site unspecified, with hemorrhage (principal); R50.9 Fever, unspecified; R07.9 Chest pain, unspecified; R19.7 Diarrhea, unspecified
CPT/HCPCS: 93005; 99283; A9270-GY

== ENCOUNTER 2018-02-25 21:19 | Emergency (ER) | payer MEDICARE ==
[2018-02-25] MEDS ORDERED: NS 0.9% 1000 ML* 1,000 ML IV ONE (21:57)
[2018-02-25 22:19] LABS: ABS Basophils 0.1 10^3/ul (0-0.2); ABS Eosinophils 0.2 10^3/ul (0-0.6); ABS Lymphocytes 1.9 10^3/ul (1.0-4.8); ABS Monocytes 0.5 10^3/ul (0-0.8); ABS Nucleated RBC 0 10^3/ul; Eosinophil % 3.7 % (0-6); Hematocrit 37 % (35-47); Hemoglobin 12.4 g/dl (12.0-16.0); Lymphocyte % 33.6 % (25-47); Mean Corpuscular HGB Conc 33 g/dl (31-36); Mean Corpuscular Hemoglobin 27 pg (27-31); Mean Corpuscular Volume 81 fL (80-97); Mean Platelet Volume 7.7 um3 (7.4-10.4); Nucleated Red Blood Cells % 0.1; Platelet Count 277 10^3/ul (150-450); Red Blood Count 4.59 10^6/ul (4.0-5.4); Red Cell Distribution Width 13 % (10.5-15); White Blood Count 5.7 10^3/ul (3.5-10.8)
[2018-02-25 22:23] LABS: Urine Appearance Clear; Urine Blood 1+ (Negative); Urine Color Yellow; Urine Ketones Negative (Negative); Urine Protein Negative (Negative); Urine Specific Gravity 1.008 (1.010-1.030); Urine Urobilinogen Negative (Negative)
[2018-02-25 22:31] LABS: INR 0.93 (0.77-1.02)
[2018-02-25 22:38] LABS: EGFR Non-African American 52.8 (>60)
[2018-02-25] MEDS ORDERED: Iodixanol* (CONTRAST) 320 MG/ML 100 ML SDV IV ONE (23:33)
[2018-02-26 01:56] VITALS: BP 120/57
--- NOTE | 2018-02-26 02:11 | ED ---
Lizett Spears Nilda, scribed for Samuel Varma MD on 02/25/18 at 2159 . GI/ HPI - HPI Summary HPI Summary: This patient is a 73 year old F presenting to [facility] accompanied by son with a chief complaint of constant LLQ pain since this morning. The patient rates the pain 2/10 in severity. Symptoms aggravated and alleviated by nothing. Son reports vaginal bleeding that ran down pt's leg as she was taking a shower. Son notes pt had full hysterectomy but pt cannot recall how long ago it occurred. Pt speaks no Ethiopian. Son is present as tractor operator battery. - History of Current Complaint Chief Complaint: EDAbdPain Time Seen by Provider: 02/25/18 21:36 Stated Complaint: GENERAL ILLNESS Hx Obtained From: Patient Onset/Duration: Started Hours Ago, Still Present Timing: Constant Current Severity: Mild Vaginal Bleeding Description: Bright Red Pain Intensity: 2 Location of Pain: LLQ Additional Signs & Symptoms: Positive: Vaginal Bleeding, Other: - LLQ pain Aggravating Factor(s): Nothing Alleviating Factor(s): Nothing - Allergy/Home Medications Allergies/Adverse Reactions: Allergies Allergy/AdvReac Type Severity Reaction Status Date / Time No Known Allergies Allergy Verified 02/18/14 14:02 Home Medications: Home Medications NK [No Home Medications Reported] 02/25/18 [History Confirmed 02/25/18] PMH/Surg Hx/FS Hx/Imm Hx Endocrine/Hematology History: Denies: Hx Diabetes Cardiovascular History: Denies: Hx Hypertension GI History: Reports: Hx Ulcer History: Denies: Hx Renal Disease Musculoskeletal History: Denies: Hx Osteoporosis - Cancer History Cancer Type, 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 - Surgical History Surgery Procedure, Year, and Place: STOMACH TO REMOVE CA (?) PER PT, DONE IN [place] Infectious Disease History: No Infectious Disease History: Denies: Traveled Outside the US in Last 30 Days - Family History Known Family History: Positive: Unknown - Pt speaks minimal Ethiopian. - Social History Lives: With Family Alcohol Use: None Hx Substance Use: No Substance Use Type: Reports: None Hx Tobacco Use: No Smoking Status (MU): Never Smoked Tobacco Review of Systems Positive: Abdominal Pain - LLQ pain Positive: other - vaginal bleeding All Other Systems Reviewed And Are Negative: Yes Physical Exam - Summary Physical Exam Summary: VITAL SIGNS: Reviewed. GENERAL: Patient is a well-developed and nourished female who is lying comfortable in the stretcher. Patient is not in any acute respiratory distress. HEAD AND FACE: No signs of trauma. No ecchymosis, hematomas or skull depressions. No sinus tenderness. EYES: PERRLA, EOMI x 2, No injected conjunctiva, no nystagmus. EARS: Hearing grossly intact. Ear canals and tympanic membranes are within normal limits. MOUTH: Oropharynx within normal limits. NECK: Supple, trachea is midline, no adenopathy, no JVD, no carotid bruit, no c- spine tenderness, neck with full ROM. CHEST: Symmetric, no tenderness at palpation LUNGS: Clear to auscultation bilaterally. No wheezing or crackles. CVS: Regular rate and rhythm, S1 and S2 present, no murmurs or gallops appreciated. ABDOMEN: Soft, mild LLQ tenderness. No signs of distention. No rebound no guarding, and no masses palpated. Bowel sounds are normal. PELVIC (nurse aide Clem present): Has cystocele. No cervix because pt had hysterectomy. RECTAL EXAM (nurse aide Lasseferinoy present):brown stool, no masses, external hemorrhoids with no bleeding. Will send for occult blood. EXTREMITIES: FROM in all major joints, no edema, no cyanosis or clubbing. NEURO: Alert and oriented x 3. No acute neurological deficits. Speech is normal and follows commands. SKIN: Dry and warm Triage Information Reviewed: Yes Vital Signs On Initial Exam: Initial Vitals Temp Pulse Resp BP Pulse Ox 98.9 F 89 16 110/50 100 02/25/18 21:20 02/25/18 21:20 02/25/18 21:20 02/25/18 21:20 02/25/18 21:20 Vital Signs Reviewed: Yes Diagnostics - Vital Signs Vital Signs Temp Pulse Resp BP Pulse Ox 02/25/18 21:20 98.9 F 89 16 110/50 100 - Laboratory Result Diagrams: 02/25/18 22:09 02/25/18 22:09 Lab Statement: Any lab studies that have been ordered have been reviewed, and results considered in the medical decision making process. - CT Abd/Pel CT Interpretation Completed By: Radiologist - No definite acute pathology. Stable dilated appendix, possibly representing mucocele or neoplasm. Sigmoid diverticulosis. Dr. Varma has reviewed this report. Re-Evaluation - Re-Evaluation First Eval Re-Evaluation Time: 01:31 Comment: Reviewed imaging and labs with pt. GIGU Course/Dx - Course Assessment/Plan: Pt is a 73 y/o who comes here w/ LLQ abd pain. No other symptoms. Exam mild tenderness to LLQ. Unremarkable lab and CT. Pt will be D/C home w/ f/u with PCP. - Diagnoses Provider Diagnoses: Abdominal pain Discharge - Sign-Out/Discharge Documenting (check all that apply): Discharge - home - Discharge Plan Condition: Critical Disposition: HOME Patient Education Materials: Abdominal Pain (ED) Print Language: TAMAZIGHT Referrals: Elza Loyola MD [Primary Care Provider] - 3 Days Additional Instructions: RETURN TO THE EMERGENCY DEPARTMENT FOR CHANGING OR WORSENING SYMPTOMS. The documentation as recorded by the Lizett wood Nilda accurately reflects the service I personally performed and the decisions made by me, Samuel Varma MD.
--- NOTE | 2018-02-26 07:28 | RAD ---
INDICATION: Left lower abdominal pain. COMPARISON: Comparison is made with a prior CT of the abdomen and pelvis from November 30, 2017. Correlation is also made with a study from September 10, 2017 and an exam from June 26, 2006 TECHNIQUE: A CT scan of the abdomen and pelvis was performed with intravenous and oral contrast following intravenous injection of 68 ml of Visipaque 320 nonionic contrast. Contiguous axial sections were obtained from the lung bases through the symphysis pubis. Images were reconstructed in the coronal and sagittal planes. FINDINGS: The lung bases are clear. No pleural effusion is present. The liver and spleen are normal in size. There is a small 0.7 x 0.5 cm hypodense lesion in the posterior segment of the right hepatic lobe which is unchanged from prior exams most consistent with a cyst. The gallbladder appears contracted. No calcified gallstones are seen. The pancreas appears to be within normal limits. The kidneys and adrenal glands are normal in size. No hydronephrosis is seen. No significant focal renal abnormality is seen. The aorta is normal in caliber and demonstrates homogeneous contrast opacification. No significant enlarged retroperitoneal lymph nodes are seen. The stomach is mildly distended. The small bowel and colon appear nondistended. The appendix is markedly enlarged with rim calculations and filled with low-density material. The diameter of the appendix measures 2.8 cm which is unchanged from the prior 2 studies and suggestive of a mucocele or appendiceal neoplasm as previously noted. There is moderate descending and sigmoid diverticulosis without evidence for diverticulitis. There is a small periumbilical hernia containing fat. The patient is status post hysterectomy. No free intraperitoneal air or fluid is seen. No significant focal osseous abnormality is seen. IMPRESSION: 1. NO EVIDENCE FOR ACUTE FINDING OR CAUSE FOR THE PATIENT'S ABDOMINAL PAIN IS SEEN. 2. 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
== END 2018-02-26 01:56 | disposition home or self-care (01) ==
LOC: ED 21:19
DX: R10.32 Left lower quadrant pain (principal)
CPT/HCPCS: 36415; 74177; 80053; 81003; 81015; 82150; 82270; 83690; 83735; 85025; 85610; 85730; 86140; 87086; 99283; Q9967

== ENCOUNTER 2018-03-09 16:06 | Emergency (ER) | payer MEDICARE ==
[2018-03-09] MEDS ORDERED: NS 0.9% 1000 ML* 1,000 ML IV ONE (16:33)
[2018-03-09 17:18] LABS: ABS Basophils 0 10^3/ul (0-0.2); ABS Eosinophils 0.1 10^3/ul (0-0.6); ABS Lymphocytes 1.3 10^3/ul (1.0-4.8); ABS Monocytes 0.5 10^3/ul (0-0.8); ABS Neutrophils 4.4 10^3/ul (1.5-7.7); ABS Nucleated RBC 0 10^3/ul; Eosinophil % 2.3 % (0-6); Hematocrit 38 % (35-47); Hemoglobin 12.2 g/dl (12.0-16.0); Lymphocyte % 20.4 % (25-47); Mean Corpuscular HGB Conc 33 g/dl (31-36); Mean Corpuscular Hemoglobin 26 pg (27-31); Mean Corpuscular Volume 81 fL (80-97); Mean Platelet Volume 7.3 um3 (7.4-10.4); Nucleated Red Blood Cells % 0; Platelet Count 358 10^3/ul (150-450); Red Blood Count 4.62 10^6/ul (4.0-5.4); Red Cell Distribution Width 13 % (10.5-15); White Blood Count 6.3 10^3/ul (3.5-10.8)
[2018-03-09 17:27] LABS: INR 0.98 (0.77-1.02)
[2018-03-09 17:35] LABS: EGFR Non-African American 60.2 (>60)
--- NOTE | 2018-03-09 18:09 | ED ---
Kayy Spears Thomas, scribed for Gerson Morel MD on 03/09/18 at 1630 . Abdominal Pain/Female - HPI Summary HPI Summary: The patient is a 73 year old brought in by ambulance from home. The patient speaks Martiniquais and an iPad sign language interpreter was used to facilitate the conversation. The patient comes in today because there is a ball coming out of my vagina. The patient was previously referred for an unspecified surgery, but this surgery has not yet occurred. The patient also complains of head, neck, leg, arm , and back pain. - History of Current Complaint Stated Complaint: LWR ABD PAIN Time Seen by Provider: 03/09/18 16:10 Hx Obtained From: Patient Onset/Duration: Still Present Timing: Constant Severity Currently: Moderate Aggravating Factor(s): Nothing Alleviating Factor(s): Nothing Associated Signs and Symptoms: Positive: Other: - Head, neck, leg, arm, and back pain Allergies/Adverse Reactions: Allergies Allergy/AdvReac Type Severity Reaction Status Date / Time No Known Allergies Allergy Verified 02/28/18 18:06 PMH/Surg Hx/FS Hx/Imm Hx Endocrine/Hematology History: Denies: Hx Diabetes, Hx Anemia Cardiovascular History: Denies: Hx Hypertension GI History: Reports: Hx Ulcer History: Denies: Hx Renal Disease Musculoskeletal History: Denies: Hx Osteoporosis - Cancer History Cancer Type, 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 - Surgical History Surgery Procedure, Year, and Place: STOMACH SURG TO REMOVE CA (?) PER PT, DONE IN [place] Infectious Disease History: No Infectious Disease History: Denies: Traveled Outside the [place] in Last 30 Days - Family History Known Family History: Positive: Other - CA - parents and siblings - Social History Alcohol Use: None Hx Substance Use: No Substance Use Type: Reports: None Hx Tobacco Use: No Smoking Status (MU): Never Smoked Tobacco Review of Systems Negative: Fever Positive: other - Ball coming out of vagina Positive: Other - head, neck, leg, arm, and back pain All Other Systems Reviewed And Are Negative: Yes Physical Exam - Summary Physical Exam Summary: General: well-appearing, no pain distress Skin: warm, color reflects adequate perfusion, dry Head: normal Eyes: EOMI, JACE ENT: normal Neck: supple, nontender Respiratory: CTA, breath sounds present Cardiovascular: RRR Abdomen: soft, nontender Bowel: present Pelvic exam: Speculum exam shows no discharge or blood. There was a cystocele present that is easily reducible. Female lab tech was present. Musculoskeletal: normal, strength/ROM intact Neurological: normal, sensory/motor intact, A&O x3 Psychological: affect/mood appropriate Triage Information Reviewed: Yes Vital Signs On Initial Exam: Initial Vitals Temp Pulse Resp BP Pulse Ox 98.9 F 92 18 120/53 99 03/09/18 16:09 03/09/18 16:09 03/09/18 16:09 03/09/18 16:09 03/09/18 16:09 Vital Signs Reviewed: Yes Diagnostics - Vital Signs Vital Signs Temp Pulse Resp BP Pulse Ox 03/09/18 16:09 98.9 F 92 18 120/53 99 - Laboratory Lab Results: Lab Results 03/09/18 03/09/18 03/09/18 Range/Units 17:05 17:05 17:05 WBC 6.3 (3.5-10.8) 10^3/ul RBC 4.62 (4.0-5.4) 10^6/ul Hgb 12.2 (12.0-16.0) g/dl Hct 38 (35-47) % MCV 81 (80-97) fL MCH 26 L (27-31) pg MCHC 33 (31-36) g/dl RDW 13 (10.5-15) % Plt Count 358 (150-450) 10^3/ul MPV 7.3 L (7.4-10.4) um3 Neut % (Auto) 69.2 (38-83) % Lymph % (Auto) 20.4 L (25-47) % [place] % (Auto) 7.4 H (0-7) % Eos % (Auto) 2.3 (0-6) % Baso % (Auto) 0.7 (0-2) % Absolute Neuts (auto) 4.4 (1.5-7.7) 10^3/ul Absolute Lymphs (auto) 1.3 (1.0-4.8) 10^3/ul Absolute Monos (auto) 0.5 (0-0.8) 10^3/ul Absolute Eos (auto) 0.1 (0-0.6) 10^3/ul Absolute Basos (auto) 0 (0-0.2) 10^3/ul Absolute Nucleated RBC 0 10^3/ul Nucleated RBC % 0 INR (Anticoag Therapy) 0.98 (0.77-1.02) APTT 26.4 (26.0-36.3) seconds Sodium 138 L (139-145) mmol/L Potassium 4.0 (3.5-5.0) mmol/L Chloride 103 (101-111) mmol/L Carbon Dioxide 29 (22-32) mmol/L Anion Gap 6 (2-11) mmol/L BUN 13 (6-24) mg/dL Creatinine 0.92 (0.51-0.95) mg/dL Est GFR ( Amer) 77.4 (>60) Est GFR (Non-Af Amer) 60.2 (>60) BUN/Creatinine Ratio 14.1 (8-20) Glucose 103 H (70-100) mg/dL Lactic Acid (0.5-2.0) mmol/L Calcium 9.1 (8.6-10.3) mg/dL Total Bilirubin 0.40 (0.2-1.0) mg/dL AST 22 (13-39) U/L ALT 16 (7-52) U/L Alkaline Phosphatase 90 (34-104) U/L C-Reactive Protein 10.84 H (< 5.00) mg/L Total Protein 7.4 (6.4-8.9) g/dL Albumin 4.0 (3.2-5.2) g/dL Globulin 3.4 (2-4) g/dL Albumin/Globulin Ratio 1.2 (1-3) Lipase 43 (11.0-82.0) U/L 03/09/18 Range/Units 17:05 WBC (3.5-10.8) 10^3/ul RBC (4.0-5.4) 10^6/ul Hgb (12.0-16.0) g/dl Hct (35-47) % MCV (80-97) fL MCH (27-31) pg MCHC (31-36) g/dl RDW (10.5-15) % Plt Count (150-450) 10^3/ul MPV (7.4-10.4) um3 Neut % (Auto) (38-83) % Lymph % (Auto) (25-47) % [place] % (Auto) (0-7) % Eos % (Auto) (0-6) % Baso % (Auto) (0-2) % Absolute Neuts (auto) (1.5-7.7) 10^3/ul Absolute Lymphs (auto) (1.0-4.8) 10^3/ul Absolute Monos (auto) (0-0.8) 10^3/ul Absolute Eos (auto) (0-0.6) 10^3/ul Absolute Basos (auto) (0-0.2) 10^3/ul Absolute Nucleated RBC 10^3/ul Nucleated RBC % INR (Anticoag Therapy) (0.77-1.02) APTT (26.0-36.3) seconds Sodium (139-145) mmol/L Potassium (3.5-5.0) mmol/L Chloride (101-111) mmol/L Carbon Dioxide (22-32) mmol/L Anion Gap (2-11) mmol/L BUN (6-24) mg/dL Creatinine (0.51-0.95) mg/dL Est GFR ( Amer) (>60) Est GFR (Non-Af Amer) (>60) BUN/Creatinine Ratio (8-20) Glucose (70-100) mg/dL Lactic Acid 0.6 (0.5-2.0) mmol/L Calcium (8.6-10.3) mg/dL Total Bilirubin (0.2-1.0) mg/dL AST (13-39) U/L ALT (7-52) U/L Alkaline Phosphatase (34-104) U/L C-Reactive Protein (< 5.00) mg/L Total Protein (6.4-8.9) g/dL Albumin (3.2-5.2) g/dL Globulin (2-4) g/dL Albumin/Globulin Ratio (1-3) Lipase (11.0-82.0) U/L Result Diagrams: 03/09/18 17:05 03/09/18 17:05 Lab Statement: Any lab studies that have been ordered have been reviewed, and results considered in the medical decision making process. Abdominal Pain Fem Course/Dx - Course Course Of Treatment: Medications reviewed. AFTER PAST HISTORY REVIEWED, THE PATIENT HAS BEEN HERE MULTIPLE TIMES FOR THE SAME COMPLAINT. THE PATIENT WAS INTERVIEWED WITH AN BIT SHAVER. HER PRIOR SURGERY, HYSTERECTOMY, WAS DONE 40 YEARS AGO. PATIENT REPORTS A "BALL" THAT COMES OUT OF HER VAGINA. SHE HAS HAD THIS PROBLEM AT VARIOUS LEVELS SINCE THEN. THERE IS A CYSTOCELE ON EXAM. SHE HAS NOT SEEN A LOCAL [place]UV[place] COURT JUDGE ABOUT HER CYSTOCELE. I HAVE [facility]EN [facility] PHONE NUMBER AND INSTRUCTIONS TO FOLLOW UP WITH GYNECOLOGY FOR HER CYSTOCELE. - Diagnoses Provider Diagnoses: Bladder cystocele Discharge - Sign-Out/Discharge Documenting (check all that apply): Discharge - Discharge Plan Condition: Stable Disposition: HOME Patient Education Materials: Cystocele (ED) Referrals: Elza Loyola MD [Primary Care Provider] - [facility] [Provider Group] Luna Thakkar MD [Medical Doctor] - Additional Instructions: FOLLOW UP WITH YOUR JUVENILE COURT JUDGE FOR YOUR CYSTOCELE. GYNECOLOGY IS THE SPECIALTY THAT TAKES CARE OF YOUR CONDITION. CALL [facility] TO GET FURTHER EVALUATION AND CARE OF YOUR CYSTOCELE. RETURN TO THE EMERGENCY DEPARTMENT FOR ANY WORSENING OF YOUR CONDITION OR QUESTIONS OR CONCERNS. - Billing Disposition and Condition Condition: STABLE Disposition: HOME The documentation as recorded by the Kayy wood Thomas accurately reflects the service I personally performed and the decisions made by me, Gerson Morel MD.
[2018-03-09 18:54] VITALS: BP 97/53
== END 2018-03-09 19:03 | disposition home or self-care (01) ==
LOC: ED 16:06
DX: N81.10 Cystocele, unspecified (principal)
CPT/HCPCS: 36415; 80053; 83605; 83690; 85025; 85610; 85730; 86140; 96360; 99283

== ENCOUNTER 2018-10-01 07:31 | Day surgery (SDC) | payer MEDICARE, MEDICAID ==
[~2018-10-01 07:31] MED LIST: Buffered Lidocaine 0.9% SYRIN* 5 ML/SYR SYRINGE INTRADERM ONE; Dexamethasone TAB* 6 MG PO ONE; DiMENhydriNATE IV* 50 MG/ML VIAL IV PUSH PRN; Famotidine IV* 10 MG/ML 2 ML (20 mg) IV ONE; Naloxone* 0.4 MG/ML 1 ML VIAL IV PRN; Ondansetron TAB* 4 MG PO ONE; PROCHLORPERAZINE INJ 5 MG/ML 2 ML VIAL IV PRN; ceFOXitin 2 GM IVPREMIX* 2 GM/50 ML BAG IVPB ONE; oxyCODONE/Acetamin 5/325 MG* TAB PO PRN
[2018-10-01] MEDS ORDERED: Dexamethasone TAB* 4 MG ONE (08:37)
[2018-10-01] MEDS ORDERED: Famotidine IV* 10 MG/ML 2 ML (20 mg) ONE (08:37)
[2018-10-01] MEDS ORDERED: Ondansetron ODT TAB* 4 MG ONE (08:37)
[2018-10-01] MEDS ORDERED: Midazolam* 1 MG/ML 2 ML VIAL (2 MG) ONE (09:53)
[2018-10-01] MEDS ORDERED: fentaNYL* 50 MCG/ML 2 ML VIAL (100 MCG VIAL) ONE ×3 (09:53→13:06)
[2018-10-01] MEDS ORDERED: KETAMINE HCL* 50 MG/ML 10 ML VIAL ONE (09:53)
[2018-10-01] MEDS ORDERED: Bupivacaine 0.5% W/EPI SDV* 30 ML VIAL ONE (09:57)
[2018-10-01] MEDS ORDERED: HYDROmorphone INJ* 0.5 MG/0.5 ML SYRINGE ONE (09:58)
[2018-10-01] MEDS ORDERED: Ketorolac INJ* 30 MG/ML 1 ML VIAL ONE (10:39)
[2018-10-01] MEDS ORDERED: Flumazenil* 0.1 MG/ML 5 ML MDV ONE (10:39)
[2018-10-01] MEDS ORDERED: Propofol* 10 MG/ML 20 ML BTL IV PUSH ONE (10:39)
[2018-10-01] MEDS ORDERED: Glycopyrrolate IV* 0.2 MG/ML 1 ML VIAL ONE (10:39)
[2018-10-01] MEDS ORDERED: Metoprolol Tartrate IV* 1 MG/ML 5 ML VIAL ONE (11:43)
[2018-10-01] MEDS: fentaNYL* 50 MCG/ML 2 ML VIAL (100 MCG VIAL) IV PRN ×6 (12:22→13:30)
[2018-10-01] MEDS ORDERED: Morphine VIAL* 4 MG/ML VIAL (1 ml vial) IV ONE ×2 (12:59→13:40)
[2018-10-01] MEDS: Morphine VIAL* 4 MG/ML VIAL (1 ml vial) IV PRN ×3 (13:02→13:27)
[2018-10-01] MEDS ORDERED: PROCHLORPERAZINE INJ 5 MG/ML 2 ML VIAL ONE (14:46)
[2018-10-01 15:40] VITALS: BP 141/97
--- NOTE | 2018-10-02 09:49 | OP ---
CC: Dr. Elza Loyola * DATE OF OPERATION: 10/01/18 - [facility] DATE OF : 49 SURGEON: Bogdan Beaver MD INDUSTRIAL RADIOGRAPHER: Georgia Rich NP ANESTHESIOLOGIST: Dr. Danielson. ANESTHESIA: General anesthetic, local infiltration. PRE-OP DIAGNOSIS: Mass of appendix. POST-OP DIAGNOSIS: Mass of appendix. OPERATIVE PROCEDURE: 1. Laparoscopic appendectomy with removal of mass of appendix. 2. Lysis of adhesions. DESCRIPTION OF PROCEDURE: The patient was supine on the operating room table. After adequate general anesthetic, compression stockings, Jenelle Hugger warmer, and intravenous antibiotics, the abdomen was prepped with antiseptic, draped in a sterile fashion. Local infiltrative anesthesia was administered. A small umbilical incision was created. A blunt port cannula was placed. Insufflation was carried out with carbon dioxide. Inspection revealed multiple omental adhesions. Ultimately, I could find a small space in the left lower quadrant where I could get in a 5-mm cannula and subsequently another space to get in a 5 mm in the left lateral, and then I took down multiple omental adhesions to the abdominal wall until I could expose some free intraperitoneal space. This was somewhat time consuming, but the bowel was out of the way, so this was all just omental adhesions. Additional suprapubic cannula was placed as well. The base of the appendix was tented upward and divided using an Endo SUZAN stapler with a 45-mm martinez cartridge. The mesoappendix was divided using a morton load stapler. There was still multiple attachments as the highly enlarged appendix wrapped behind the cecum and this required some difficult retraction, but ultimately we were able to dissect the entire appendix free. It was placed in a retrieval bag and brought through the umbilical site, which had been enlarged somewhat for that purpose. The operative field was irrigated and free-fluid suctioned out. Everything was in good condition. Hemostasis was good. The umbilical fascia was closed with 0 Vicryl and the skin with 5-0 Vicryl in all cases, followed by Steri-Strips. She was awakened, extubated, and brought to Recovery in good condition. There were no complications. No drains. Pathologic specimen is appendix. Sponge and instrument counts correct. Estimated blood loss 50 mL. [id number]/[id number] #: [id number] [facility]
== END 2018-10-01 15:54 | disposition home or self-care (01) ==
LOC: OR 07:31
PROVIDERS: ATTEND Surgery
DX: D12.1 Benign neoplasm of appendix (principal); K66.0 Peritoneal adhesions (postprocedural) (postinfection); R10.9 Unspecified abdominal pain; K38.8 Other specified diseases of appendix; Z87.891 Personal history of nicotine dependence; M81.0 Age-related osteoporosis without current pathological fracture; E55.9 Vitamin D deficiency, unspecified
CPT/HCPCS: 88304; 88305; A9270-GY; C1776; J0694; J0780; J1170; J1885; J2250; J2270; J2704; J3010; J3490; J8540

== ENCOUNTER 2022-01-02 14:54 | Inpatient (IN) ==
[2022-01-02 15:52] LABS: ABS Basophils 0.1 10^3/ul (0-0.2); ABS Eosinophils 0.2 10^3/ul (0-0.6); ABS Lymphocytes 1.7 10^3/ul (1.0-4.8); ABS Monocytes 0.8 10^3/ul (0-0.8); ABS Neutrophils 6.2 10^3/ul (1.5-7.7); Eosinophil % 2.1 %; Hematocrit 38 % (35-47); Hemoglobin 12.1 g/dL (12.0-16.0); Lymphocyte % 19.4 %; Mean Corpuscular HGB Conc 32 g/dL (31-36); Mean Corpuscular Hemoglobin 25 pg (27-31); Mean Corpuscular Volume 78 fL (80-97); Mean Platelet Volume 7.2 fL (7.4-10.4); Platelet Count 419 10^3/uL (150-450); Red Cell Distribution Width 15 % (10-15); White Blood Count 8.9 10^3/uL (3.5-10.8)
[2022-01-02] MEDS ORDERED: LORazepam 2 mg VIAL 1 ml IV PUSH ONE (15:54)
[2022-01-02] MEDS ORDERED: Lorazepam PYXIS KEY PRN (15:54)
[2022-01-02 15:55] LABS: INR 1.08 (0.86-1.15)
[2022-01-02] MEDS ORDERED: Metoclopramide 5 MG/ML VIAL (10 mg) IV PRN (15:59)
[2022-01-02 16:00] LABS: Calcium 9.3 mg/dL (8.6-10.3); Total Bilirubin 0.3 mg/dL (0.2-1.0)
[2022-01-02 16:06] LABS: Globulin 3.9 g/dL (2-4); Total Protein 7.9 g/dL (6.4-8.9); eGFR CKD-EPI 61.3 (>60)
[2022-01-02 16:40] LABS: TSH Ultra Thyroid Stim Horm 3.07 mcIU/mL (0.34-5.60)
[2022-01-02] MEDS: Heparin 5000 UNITS/ML 1 mL VIAL SUBCUT SCH (22:21)
[2022-01-02 23:39] LABS: Urine Appearance Turbid; Urine Bilirubin Negative (Negative); Urine Blood 2+ (Negative); Urine Color Yellow; Urine Glucose Negative (Negative); Urine Ketones Trace (Negative); Urine Nitrite Negative (Negative); Urine Protein 1+(30 mg/dL) (Negative); Urine Specific Gravity 1.006 (1.002-1.030); Urine Urobilinogen Negative (Negative)
[2022-01-02 23:47] LABS: Urine Bacteria Absent (Absent); Urine Red Blood Cell 3+(>10/hpf) (Absent); Urine Squamous Epithelial Cell Present (Absent); Urine White Blood Cell 3+(>20/hpf) (Absent)
[2022-01-03] MEDS ORDERED: fentaNYL 100 mcg/2 ml 50 MCG/ML VIAL IV SLOW PU PRN (02:59)
[2022-01-03] MEDS: cefTRIAXone 1 gm/50 mL NS BAG 1 GM/50 ML BAG IVPB SCH (04:20)
[2022-01-03] MEDS: Acetaminophen IV 1 GM/100ML 100 ML IV PRN ×2 (06:23→12:10)
[2022-01-03] MEDS: Heparin 5000 UNITS/ML 1 mL VIAL SUBCUT SCH ×3 (06:28→22:50)
[2022-01-03] MEDS ORDERED: Polyethylene Glycol 3350 17 GM PACKET PO PRN (08:25)
[2022-01-03] MEDS ORDERED: Senna TAB 8.6 mg TAB PO PRN (08:26)
[2022-01-03] MEDS ORDERED: ROPIVACAINE 5 MG/ML 30 ML BTL (0.5%) ONE (14:47)
[2022-01-03] MEDS ORDERED: Midazolam 2 mg/2 ml VIAL 1 mg/ml 2 ml VIAL (2 mg) ONE (14:51)
[2022-01-03] MEDS ORDERED: Ondansetron 4 mg VIAL 2 MG/ML 2 ml VIAL ONE (14:51)
[2022-01-03] MEDS ORDERED: fentaNYL 100 mcg/2 ml 50 MCG/ML VIAL ONE (14:51)
[2022-01-03] MEDS ORDERED: Lidocaine 2% PF 5 ML VIAL ONE (14:51)
[2022-01-03] MEDS ORDERED: Propofol 10 MG/ML 20 ML BTL ONE (14:51)
[2022-01-03] MEDS ORDERED: Dexamethasone IV 4 MG/ML VIAL 1 ml VIAL ONE (14:51)
[2022-01-03] MEDS ORDERED: Dexmedetomidine 200 mcg/2 ml 2 ml VIAL (200 mcg) ONE (15:08)
[2022-01-03] MEDS ORDERED: Phenylephrine IV 10 MG/ML 1 ml VIAL ONE ×2 (15:12→15:13)
[2022-01-03] MEDS ORDERED: Rocuronium 50 mg VIAL 10 mg/ml 5 ml VIAL (50 mg) ONE (15:58)
[2022-01-03] MEDS ORDERED: ceFAZolin VIAL VIAL ONE ×2 (16:01)
[2022-01-03] MEDS ORDERED: EPHEDrine (Pressors) 50 MG/ML VIAL ONE (16:19)
[2022-01-03] MEDS ORDERED: Acetaminophen IV 1 GM/100ML 100 ML IV ONE (16:29)
[2022-01-03] MEDS ORDERED: Naloxone 0.4 mg VIAL 0.4 mg/ml 1 ml VIAL IV PRN (17:16)
[2022-01-03] MEDS ORDERED: fentaNYL 100 mcg/2 ml 50 MCG/ML VIAL IV PRN (17:16)
[2022-01-03 22:03] LABS: Hematocrit 32 % (35-47); Hemoglobin 10.3 g/dL (12.0-16.0)
[2022-01-04] MEDS: Acetaminophen IV 1 GM/100ML 100 ML IV PRN ×3 (00:45→15:10)
[2022-01-04] MEDS: ceFAZolin 1 GM X 3 DOSES POST-OP Q8H (AddVan) IVPB SCH ×2 (00:59→08:01)
[2022-01-04] MEDS: Heparin 5000 UNITS/ML 1 mL VIAL SUBCUT SCH (05:39)
[2022-01-04 07:41] LABS: ABS Eosinophils 0.1 10^3/ul (0-0.6); ABS Lymphocytes 0.5 10^3/ul (1.0-4.8); ABS Monocytes 0.7 10^3/ul (0-0.8); ABS Neutrophils 8.8 10^3/ul (1.5-7.7); Eosinophil % 0.6 %; Hematocrit 29 % (35-47); Hemoglobin 9.2 g/dL (12.0-16.0); Lymphocyte % 5.1 %; Mean Corpuscular HGB Conc 32 g/dL (31-36); Mean Corpuscular Hemoglobin 25 pg (27-31); Mean Corpuscular Volume 78 fL (80-97); Mean Platelet Volume 7.3 fL (7.4-10.4); Platelet Count 265 10^3/uL (150-450); Red Blood Count 3.68 10^6 /uL (3.70-4.87); Red Cell Distribution Width 15 % (10-15); White Blood Count 10.1 10^3/uL (3.5-10.8)
[2022-01-04] MEDS ORDERED: LORazepam 2 mg VIAL 1 ml IM ONE (07:54)
[2022-01-04] MEDS ORDERED: LORazepam 2 mg VIAL 1 ml IV PUSH ONE (07:54)
[2022-01-04] MEDS ORDERED: Lorazepam PYXIS KEY PRN (07:54)
[2022-01-04 07:59] LABS: Calcium 7.9 mg/dL (8.6-10.3); Magnesium 1.7 mg/dL (1.9-2.7); Potassium 3.5 mmol/L (3.5-5.0); eGFR CKD-EPI 82.2 (>60)
[2022-01-04] MEDS ORDERED: Magnesium Sulfate 2 GM IV (Premix) IVPB ONE (08:00)
[2022-01-04] MEDS ORDERED: Magnesium Sulfate IV 3 GM in NS 0.9% 100 ml BAG 100 ML IVPB ONE (08:05)
[2022-01-04] MEDS ORDERED: Magnesium Sulfate 1 GM IV 1 GM/100 ML BAG IV ONE (09:00)
[2022-01-04] MEDS: cefTRIAXone 1 gm/50 mL NS BAG 1 GM/50 ML BAG IVPB SCH (09:19)
[2022-01-04 11:58] LABS: Hematocrit 29 % (35-47); Hemoglobin 9.1 g/dL (12.0-16.0)
[2022-01-04] MEDS ORDERED: Enoxaparin 30 MG/0.3 ML SYR SUBCUT ONE (17:09)
[2022-01-04] MEDS ORDERED: Enoxaparin 30 MG/0.3 ML SYR SUBCUT SCH (18:00)
[2022-01-05 08:06] VITALS: BP 136/73
[2022-01-05] MEDS: Acetaminophen IV 1 GM/100ML 100 ML IV PRN (09:06)
[2022-01-05] MEDS: cefTRIAXone 1 gm/50 mL NS BAG 1 GM/50 ML BAG IVPB SCH (09:54)
== END 2022-01-05 11:50 | DRG 481 ==
LOC: ED 14:54 → EDHOLD 21:57 → SUATTDRO 21:57 → SSU 01-03
PROVIDERS: ADMIT Student in an Organized Health Care Education/Training Program; ATTEND Student in an Organized Health Care Education/Training Program